=== PATIENT | female | born 1980 | race Caucasian/White ===

== ENCOUNTER 2017-07-11 15:35 | Emergency (ER) | payer OTHER ==
[2017-07-11 16:26] VITALS: BP 120/70
--- NOTE | 2017-07-11 17:26 | UC ---
Back Pain HPI - HPI Summary HPI Summary: 37 yo female with hx DDD lower back presents with 1 week hx of severe LBP radiating to both buttock no bowel/bladder dysfunction no leg pain or paresthesia minimal relief with aleve - History of Current Complaint Chief Complaint: UCBackPain Stated Complaint: BACK PAIN Time Seen by Provider: 07/11/17 17:14 Hx Obtained From: Patient Onset/Duration: Gradual Onset, Lasting Days Timing: Constant Severity Initially: Severe Severity Currently: Severe Pain Intensity: 8 Pain Scale Used: 0-10 Numeric Back Pain: Is Diffuse, Radiates To - both buttock Character: Aching, Throbbing, Spasmodic Aggravating Factor(s): Movement, Lifting, Bending Alleviating Factor(s): Nothing Related History: Similar Episode Dx As - DDD, Previous Back Injury - Allergies/Home Medications Allergies/Adverse Reactions: Allergies Allergy/AdvReac Type Severity Reaction Status Date / Time ciprofloxacin Allergy Swelling Verified 07/11/17 16:18 morphine Allergy Itching Verified 07/11/17 16:18 Home Medications: Home Medications Naproxen Sodium [Aleve] 220 mg PO SEE INSTRUCTIONS PRN 07/11/17 [History Confirmed 07/11/17] PMH/Surg Hx/FS Hx/Imm Hx Previously Healthy: Yes - Surgical History Surgical History: Yes Surgery Procedure, Year, and Place: LEEP PROCEDURE. HYSTERECTOMY. 2 C-SECTIONS - Family History Known Family History: Positive: Hypertension, Other - father has Degenerative disk disorder - Social History Alcohol Use: Rare Substance Use Type: None Smoking Status (MU): Current Every Day Smoker Type: Cigarettes Amount Used/How Often: 1 PPD When Did the Patient Quit Smoking/Using Tobacco: 14 YRS Review of Systems Constitutional: Negative Skin: Negative Eyes: Negative ENT: Negative Respiratory: Negative Cardiovascular: Negative Gastrointestinal: Negative Genitourinary: Negative Motor: Negative Neurovascular: Negative Musculoskeletal: Negative Neurological: Negative Psychological: Negative Is Patient Immunocompromised?: No All Other Systems Reviewed And Are Negative: Yes Physical Exam Triage Information Reviewed: Yes Appearance: Well-Appearing, Well-Nourished, Pain Distress Vital Signs: Initial Vital Signs Temp 98.6 F 07/11/17 16:20 Pulse 78 07/11/17 16:20 Resp 14 07/11/17 16:20 BP 120/70 07/11/17 16:20 Pulse Ox 99 07/11/17 16:20 Vital Signs Reviewed: Yes Eyes: Positive: Conjunctiva Clear ENT: Negative: Hearing grossly normal, Nasal congestion, Nasal drainage, Tonsillar swelling, Tonsillar exudate, Uvula midline Neck: Positive: Supple, Nontender, No Lymphadenopathy Respiratory: Positive: Lungs clear, Normal breath sounds, No respiratory distress Cardiovascular: Positive: RRR, No Murmur Abdomen Description: Positive: Nontender, No Organomegaly, Soft. Negative: CVA Tenderness (R), CVA Tenderness (L) Bowel Sounds: Positive: Present Musculoskeletal: Positive: ROM Intact, No Edema Neurological: Positive: Alert Psychological Exam: Normal Skin Exam: Normal Back Pain Course/Dx - Course Course Of Treatment: Limited ROM back especially flexing and twisting torso. (- ) slr. dtrs equal bilaterally - Differential Dx/Diagnosis Provider Diagnoses: acute lumbar strain. DDD by history Discharge - Discharge Plan Condition: Stable Disposition: HOME Prescriptions: Cyclobenzaprine TAB* [Flexeril TAB*] 5 mg PO TID PRN #15 tab PRN Reason: Spasms HYDROcodone/ACETAMIN 5-325 MG* [[place] 5-325 TAB*] 1 tab PO Q4H PRN #14 tab MDD 2 PRN Reason: Pain Patient Education Materials: Low Back Strain (ED), Degenerative Disc Disease ( ED) Forms: *Work Release Referrals: [facility] [Primary Care Provider] - As Soon As Possible Edmund Wilder MD [Medical Doctor] - As Soon As Possible Additional Instructions: aleve 2 pills twice daily as needed for pain PT consult don't take muscle relaxer or narcotic and work or drive try to take narcotic primarily at night to help you sleep Images Front/Back of Body, Lg ([place]): 1 - pain here
== END 2017-07-11 17:44 | disposition home or self-care (01) ==
LOC: UCCORT 15:35
DX: S33.5XXA Sprain of ligaments of lumbar spine, initial encounter (principal); X58.XXXA Exposure to other specified factors, initial encounter; Y93.9 Activity, unspecified; Y92.9 Unspecified place or not applicable; M51.36 Other intervertebral disc degeneration, lumbar region; Z88.4 Allergy status to anesthetic agent; Z88.1 Allergy status to other antibiotic agents; F17.210 Nicotine dependence, cigarettes, uncomplicated
CPT/HCPCS: 99212; G0463